=== PATIENT | female | born 1930 | race Caucasian/White ===

== ENCOUNTER 2016-04-10 14:50 | Outpatient (CLI) | payer OTHER ==
--- NOTE | 2016-04-10 15:48 | DIAGNOSTIC IMAGING REPORT ---
PROCEDURE: US NONVASCULAR EXTREMITY-LEFT INDICATION: SOFT TISSUE MASS, LEFT MID CALF TECHNIQUE: Hubbard scale and color Doppler sonographic images of the anteromedial left lower leg were obtained COMPARISON: None. FINDINGS: Sonographically normal tissue. No suspicious cyst, solid mass, hypervascularity, or abnormal shadowing. IMPRESSION: 1. No focal soft tissue mass or fluid collection.
== END 2016-04-10 23:00 | disposition home or self-care (01) ==
LOC: US SRH 14:50
DX: M79.9 Soft tissue disorder, unspecified (principal)